=== PATIENT | male | born 1950 | race Caucasian/White ===

== ENCOUNTER 2022-03-28 10:57 | Outpatient (CLI) | payer MEDICARE, BC, SELFPAY ==
[2022-03-28 12:35] LABS: Albumin* 4.4 g/dL (3.3-5.0); Chloride* 107 mmol/L (96-114)
[2022-03-28 12:36] LABS: Potassium* 4.1 mmol/L (3.6-5.1); Sodium* 142 mmol/L (135-149)
[2022-03-28 12:38] LABS: Alkaline Phosphatase* 81 U/L (40-150); Aspartate Amino Transferase* 26 U/L (12-35); Bilirubin Total* 0.7 mg/dL (0.1-1.5); Blood Urea Nitrogen* 13 mg/dL (7-30); Carbon Dioxide* 29 mmol/L (20-32); Cholesterol* 208 mg/dL (90-199); Creatinine* 0.9 mg/dL (0.5-1.5); Estimated Glomerular Filt Rate 92 ml/min; Glucose* 102 mg/dL (60-115); Total Protein* 7.1 g/dL (6.0-8.3)
[2022-03-28 12:39] LABS: Alanine Aminotransferase* 22 U/L (4-50); Calcium* 9.4 mg/dL (8.4-10.6); HDL Cholesterol* 57 mg/dL (>=40); LDL Cholesterol Calculated 58 mg/dL (<100)
[2022-03-28 12:47] LABS: Triglycerides* 463 mg/dL (40-149)
[2022-03-28 13:11] LABS: PSA Screen* 3.25 ng/mL (0.10-4.00)
== END 2022-03-28 10:58 | disposition home or self-care (01) ==
PROVIDERS: PCP Internal Medicine; Visit Provider Internal Medicine
DX: I10 Essential (primary) hypertension (principal); N40.0 Benign prostatic hyperplasia without lower urinary tract symptoms; E78.5 Hyperlipidemia, unspecified
CPT/HCPCS: 80053; 80061; 84153; 84443

== ENCOUNTER 2022-05-10 10:37 | Outpatient (CLI) | payer MEDICARE, BC, SELFPAY | END 2022-05-10 10:38 | disposition home or self-care (01) | LOC: OP CLINIC 10:38 | PROVIDERS: PCP Internal Medicine; Visit Provider Surgery | DX: Z12.11 Encounter for screening for malignant neoplasm of colon (principal); K63.5 Polyp of colon; K62.1 Rectal polyp; K57.30 Diverticulosis of large intestine without perforation or abscess without bleeding | CPT/HCPCS: 45380; 45385; 88305; 99153; J2250; J3010 ==

== ENCOUNTER 2023-04-03 09:56 | Outpatient (CLI) | payer MEDICARE, BC, SELFPAY ==
--- OUTSIDE RECORDS SUMMARY | 2023-04-05 11:38 | XMS_ITS | Clinical Summary ---
Author Name Unknown Organization [email or web address] [facility] Address [place], [place] [address] Care Team Providers Care Support Dba Name Role Phone Sae Dominguez MD Primary Care Provider [phone] Allergies Active Allergy Reactions Criticality Noted Date Comments House Dust Runny Nose 05/17/2017 Medications Medication Sig Dispensed Refills Start Date End Date Status MULTIVITAMIN ORAL TAB once a day ? 0 11/28/2002 Active Cholecalciferol, Vitamin D3, 5,000 unit capsule Take 5,000 units by mouth once daily. 0 09/28/2009 Active Cetirizine (ZYRTEC) 10 mg Cap Take by mouth. 0 08/17/2010 Active omega-3 acid ethyl esters (LOVAZA) 1 gram capsuleIndications:H yperlipidemia LDL goal < 70 Take 2 capsules by mouth 2 times daily with meals. For triglyceride lowering and heart protection. 360 capsule 4 03/06/2013 Active aspirin (ECOTRIN) 81 mg enteric coated tabletIndications: CVD (arteriosclerotic cardiovascular disease) Take 1 tablet by mouth once daily with a meal. 0 06/06/2016 Active alirocumab (Praluent Pen) 150 mg/mL pnijIndications:Hype rlipidemia, unspecified hyperlipidemia type Inject 150 mg subcutaneous every 4 weeks. 6 mL 4 07/29/2020 Active lisinopriL (PRINIVIL; ZESTRIL) 10 mg tabletIndications:Hy pertension, unspecified type Take 1 Tablet (10 mg) by mouth once daily. 90 tablet. 3 07/31/2020 Active nitroglycerin (NITROSTAT) 0.4 mg sublingual tabletIndications:At herosclerosis of [place] coronary artery of [place] heart without angina pectoris DISSOLVE ONE TABLET UNDER TONGUE NEEDED FOR CHEST PAIN. MAY REPEAT EVERY 5 MINUTES FOR TOTAL OF 3 DOSES. NOT RELIEVED CALL 911. 25 tablet. 6 07/31/2020 Active pantoprazole (PROTONIX) 20 mg tabletIndications:Ga stroesophageal reflux disease, unspecified whether esophagitis present TAKE ONE TABLET BY MOUTH EVERY OTHER DAY ALTERNATING WITH TAKE TWO TABLETS BY MOUTH EVERY OTHER DAY 135 Tablet 3 07/31/2020 Active rosuvastatin (CRESTOR) 40 mg tabletIndications: CVD (arteriosclerotic cardiovascular disease) Take 1 Tablet (40 mg) by mouth once daily. 90 tablet. 3 07/31/2020 Active venlafaxine (EFFEXOR XR) 150 mg Extended-Release capsuleIndications:D epression, recurrent (HC) Take 1 Capsule (150 mg) by mouth once daily with a meal. TAKE WITH FOOD IF GI UPSET OCCURS. 90 capsule. 3 07/31/2020 Active amLODIPine (NORVASC) 2.5 mg tabletIndications:Hy pertension, unspecified type Take 1 Tablet (2.5 mg) by mouth once daily. 90 tablet. 3 07/31/2020 Active tamsulosin (FLOMAX) 0.4 mg capsuleIndications:B PH without urinary obstruction Take 1 Capsule (0.4 mg) by mouth once daily after a meal. 90 Capsule 3 07/31/2020 Active Active Problems Problem Noted Date Diagnosed Date Family history of familial hypercholesterolemia 06/03/2016 Family history of premature CAD 06/03/2016 Gastroesophageal reflux disease 04/21/2015 Glucose intolerance (impaired glucose tolerance) 04/07/2014 Decreased exercise tolerance 04/02/2014 Hyperlipidemia LDL goal < 70 11/26/2010 Overview: He is in line to be in SPIRE study as of 06/2014 for elevated cholesterol Vitamin D deficiency 08/21/2010 Status Post Right Foot Surgery (11/2008) 010 Family history of ischemic heart disease 009 Depression, recurrent 12/10/2007 ASCVD (arteriosclerotic cardiovascular disease) 05/11/2006 Overview: -Non Q wave CT 10/2000 -Stenting of proximal and mid LAD 10/2000 -PTCA of Diagonal 1 10/2000 -Stress Myoview 07/08/2009 Small area or mild ischemia in the base and mid inferolateral EF 66% -Successful angioplasty and stenting of the proximal mid circumflex with a drug-eluting stent 09/07/2009 Allergic rhinitis, cause unspecified 05/11/2006 Hypertension 05/11/2006 Resolved Problems Problem Noted Date Diagnosed Date Resolved Date Examination of participant o r control in clinical research 12/22/2014 12/21/2017 Overview: Study: SPIRE OUTCOMES Phase 3 multi-center, double-blind, randomized, placebo-controlled, parallel group evaluation of the efficacy, safety, and tolerability of bococizumab (pf- [id number]), in reducing the occurrence of major cardiovascular events in high risk subjects Urgent Care: Roberto Roa MD Sub Yield Clerk: HERBERTH Mathew Primary Relay Repairer: ?? Laila Rivera (formerly Uppgjules)EPHRAIM, Research Relay Repairer [address], [address] [place] [id number] P: [phone] F: [phone] Pager: [phone] [email or web address] Back up Coordinators: ?? Janiya Stockton RN Certified Clinical Research Coordinator [address], [address] [place] [id number] P:[phone] I F:[phone] I Pager:[phone] [email or web address] ?? Danielle Stanton RN, Clinical Research Coordinator [address], [address] [place] [id number] Pager: [phone] [email or web address] Research subject 11/18/2014 12/21/2017 Overview: [facility] Research SPIRE 1 & 2 Studies PHASE 3 MULTI-CENTER, DOUBLE-BLIND, RANDOMIZED, PLACEBO-CONTROLLED, PARALLEL GROUP EVALUATION OF THE EFFICACY, SAFETY, AND TOLERABILITY OF BOCOCIZUMAB ([id number]), IN REDUCING THE OCCURRENCE OF MAJOR CARDIOVASCULAR EVENTS IN HIGH RISK SUBJECTS PI: Roberto Roa MD Screening/Identification of patients: ?? LDL > 70 ?? Age ?18 years with prior CVD event ?? Men > 50 years and women > 60 years with no prior CVD event Duration of Study Phases and Treatment ?? Prerandomization Phase: approximately 6 weeks ?? Randomization Phase: 1 day ?? Treatment Period: approximately 4 years Study Coordinators: Laila Rivera (formerly Uppgaard)EPHRAIM RN Research Relay Repairer Research Relay Repairer [address], [address] [place] [phone] [place] [address], [address] [phone] Pager: [phone] Pager:[phone] [email or web address] Danielle Stanton RN Research Relay Repairer [address], [address] [place] [id number] Pager: [phone] [email or web address] Immunizations Name Administration Dates Next Due Influenza, High-dose Inactivated 03/23/2017 Influenza, High-dose Quadriv alent Inactivated 01/21/2020 Influenza, IIV3 (Age >=3 years) 11/25/19 11,11/18/2008,12/13/2006,2003 Td (Age >=7 Years) 05/04/1999 Tdap 12/28/2011 Family History Medical History Relation Name Comments Heart Disease Father SIBLINGS/GRAND PARENTS Heart Disease Mother Genetic Other Father at age 71 with myocardial infarction. One brother had myocardial infarction at age 26 and at age 33 with congestive heart failure. He may have had a congenital abnormality of the coronary arteries. He also had significant Agent [place]* Relation Name Status Comments Father Mother Other Social History Tobacco Use Types Packs/Day Years Used Date Smoking Tobacco: Light Smoker Cigarettes Cigars Smokeless Tobacco: Never Tobacco Cessation:Counseling Given: Yes Comments:Occasional 2-4 cigars per week 07/10/2018, last attempt to quit 12/28/2008 Alcohol Use Standard Drinks/Week Comments Not Currently 0 (1 standard drink = 0.6 oz pur e alcohol) rare PHQ-2 Answer Date Recorded PHQ-2 TOTAL SCORE 0 07/31/2020 Social Connections Answer Date Recorded Frequency of Communication with Friends and Fami ly Not on file 02/27/2021 Financial Resource Strain Answer Date R ecorded Difficulty of Paying Living Expenses Not on file 02/27/2021 Difficulty of Paying Living Expenses Not on file 02/27/2021 Sex and Gender Information Value Date Recorded Sex Assigned at Not on file Gender Identity Not on file Sexual Orientation Not on file Obstetrics History Last Filed Vital Signs Vital Sign Reading Time Taken Comments Blood Pressure 159/99 02/09/2021 1:04 PM [employer]ACH[employer]GER Pulse 86 02/09/2021 1:04 PM [employer] Temperature 36.2 ??C (97.2 ??F) 07/31/2020 11:25 AM C DT Respiratory Rate 20 12/25/2019 1:04 PM CDT Oxygen Saturation 99% 02/09/2021 1:04 PM [employer]ACH[employer] Inhaled Oxygen Concentration - - Weight 87.5 kg (193 lb) 02/09/2021 1:04 PM [employer]ACH[employer] Height 174 cm (5' 8.5) 02/11/2020 11:19 AM [employer] Body Mass Index 28.92 02/11/2020 11:19 AM [employer]ACHUTE [employer]IGGER Plan of Treatment Health Maintenance Due Date Last Done Comments COVID-19 vaccine series (#1) 1951 Colonoscopy through age 75 1996 Zoster (shingles) series for age 50+ (1 of 2) 2001 Medicare Wellness for age 65+ 2016 Pneumococcal series for age 65+ (1 of 1 - PCV) 2016 BMI (ht and wt on same day) for age 18+ 02/10/2021 02/11/2020, 01/30/2020, 12/25/2019, Additional history exists Depression screening for age 12+ 08/03/2021 08/03/2020, 07/31/2020, 11/06/2019, Additional history exists Tetanus booster 12/27/2021 12/28/2011, 11/29, 05/04/1999 Influenza for age 65+ 10/28/2022 01/21/2020 , 03/23/2017, 11/24/2010, Additional history exists Lipids for age 45-75 02/03/2026 02/03/2021, 06/04/2020, 10/23/2019, Additional history exists Tdap Completed 12/28/2011 Hepatitis C screening for ag e 18-79 Completed 12/21/2017 Medical Devices Implanted Type Area Issuing Operator Device Identifier Shelf Expiration Date Model / Serial / Lot Band Circling .[id number] [employer] - [id number] Implanted:Qty: 1 on 07/24/2014 by Anuradha Vila MD at [facility] Left: Eye [employer] [id number]# / / [id number] [employer] 7.0/2.5mm Groove-Convex [id number] [employer]ian - [id number] Implanted:Qty: 1 on 07/24/2014 by Anuradha Vila MD at [facility] Left: Eye [employer] [id number]# / / [id number] Sleeve Silcn 0.76mmlabtician - [id number] Implanted:Qty: 1 on 07/24/2014 by Anuradha Vila MD at [facility] Left: Eye [employer] [id number]# / / [id number] Advance Directives Latest Code Status on File Code Status Date Activated Date Inactivated Comments Full Code 09/01/2014 12:49 PM 09/01/2014 8:16 PM Code Status History Code Status Date Activated Date Inactivated Comments Full Code 07/24/2014 11:08 AM 07/24/2014 6:04 PM Full Code 09/07/2009 10:19 AM 09/08/2009 1:56 PM Care Teams Support Dba Relationship Specialty Start Date End Date Sae Dominguez [place] [address] PCP - General Family Practice 04/06/11
== END 2023-04-03 09:57 | disposition home or self-care (01) ==
LOC: NFLDREF 04-05 11:36
PROVIDERS: PCP Internal Medicine; Referring Provider Internal Medicine; Visit Provider Internal Medicine
DX: E78.5 Hyperlipidemia, unspecified (principal); I10 Essential (primary) hypertension
CPT/HCPCS: 80053; 80061

== ENCOUNTER 2024-11-12 07:31 | Outpatient (CLI) | payer MEDICARE, BC, SELFPAY | END 2024-11-12 07:32 | disposition home or self-care (01) | LOC: NFLDREF 11-17 04:00 | PROVIDERS: PCP Internal Medicine; Referring Provider Internal Medicine; Visit Provider Internal Medicine | DX: I10 Essential (primary) hypertension (principal); E78.5 Hyperlipidemia, unspecified; N40.0 Benign prostatic hyperplasia without lower urinary tract symptoms; Z12.5 Encounter for screening for malignant neoplasm of prostate | CPT/HCPCS: 80053; 80061; G0103 ==